=== PATIENT | female | born 1985 | race Caucasian/White ===

== ENCOUNTER 2017-06-24 17:48 | Emergency (ER) | payer BC ==
[2017-06-24 18:02] VITALS: BP 131/80
[2017-06-24] MEDS ORDERED: Sodium Chloride 0.9% 10 ML Syringe FLUSH PRN ×2 (18:43→20:04)
[2017-06-24] MEDS ORDERED: Diatrizoate Meglumine/Diatrizoate Sodium 37% 120 ML Bottle PO ONE (20:04)
[2017-06-24] MEDS ORDERED: Iopamidol 612 MG/ML 150 ML Bottle IVPUSH ONE (20:04)
[2017-06-24] MEDS ORDERED: Ondansetron 4 MG/2 ML SDV IVPUSH ONE (20:27)
[2017-06-24] MEDS ORDERED: HYDROmorphone 1 MG/ML Syringe IVPUSH ONE (20:27)
--- NOTE | 2017-06-24 20:51 | EDM.PDOC ---
ED HPI GENERAL MEDICAL PROBLEM - General Chief Complaint: Abdominal Pain Stated Complaint: LOWER ABDOMINAL PAIN Time Seen by Provider: 06/24/17 18:30 Source of Information: Reports: Patient History Limitations: Reports: No Limitations - History of Present Illness INITIAL COMMENTS - FREE TEXT/NARRATIVE: 31 year old female presents for evaluation and treatment of lower abdominal pain. Patient reports the pain initially began this morning. States the pain resolved on its own but returned this afternoon and worsened. Currently pain is located in her lower abdomen and is described as a sharp sensation. Reports the pain is worse with movement and coughing. States the pain is a 10 out of 10 with walking and a 3 or 4 out of 10 at rest. Reports associated symptoms of dizziness, nausea and hot flashes. Denies any fevers, vomiting, dysuria, hematuria, melena or constipation. Patient reports last bowel movement around 3pm today. It was soft and easy to pass. Patient has an IUD in place. No longer has a menstrual cycle. No previous surgeries to her abdomen. Onset: Today Bilateral Lower Abdomen Pain Score (Numeric/FACES): 7 - Related Data Allergies Allergy/AdvReac Type Severity Reaction Status Date / Time No Known Allergies Allergy Verified 06/24/17 18:02 Home Meds: Home Meds Levonorgestrel [Mirena] 1 insert IUTERINE ONETIME 06/24/17 [History] Past Medical History - Past Health History Medical/Surgical History: Denies Medical/Surgical History Social & Family History - Tobacco Use Smoking Status *Q: Current Some Day Smoker Years of Tobacco use: 5 Packs/Tins Daily: 0.1 Used Tobacco, but Quit: No Second Hand Smoke Exposure: No - Caffeine Use Caffeine Use: Reports: Soda Other Caffeine Use: 1/week - Recreational Drug Use Recreational Drug Use: No ED ROS GENERAL - Review of Systems Review Of Systems: See Below Constitutional: Reports: Malaise. Denies: Fever GI/Abdominal: Reports: Abdominal Pain (lower abdomen), Decreased Appetite (last intake around 1500), Flatus, Nausea. Denies: Hematochezia, Melena, Vomiting : Reports: No Symptoms, Other (LMP unknown). Denies: Dysuria, Hematuria Neurological: Reports: Dizziness ED EXAM, GI/ABD - Physical Exam Exam: See Below Exam Limited By: No Limitations General Appearance: Alert, WD/WN, No Apparent Distress, Obese Respiratory/Chest: No Respiratory Distress, Lungs Clear, Normal Breath Sounds Cardiovascular: Normal Peripheral Pulses, Regular Rate, Rhythm, No Murmur GI/Abdominal Exam: Normal Bowel Sounds, Soft, Guarding, Tender (greatest to the LLQ and suprapbic but also to the RLQ), Other (+ psosas sign; + obturator sign; reports pain at mcburnies point). No: Distended, Rigid, Rebound Neurological: Alert, Oriented, Normal Cognition Psychiatric: Normal Affect, Normal Mood Skin Exam: Warm, Dry, Normal Color Course - Vital Signs Last Recorded V/S: Last Vital Signs Temp 36.6 C 06/24/17 17:59 Pulse 79 06/24/17 17:59 Resp 20 06/24/17 17:59 BP 131/80 06/24/17 17:59 Pulse Ox 98 06/24/17 17:59 - Orders/Labs/Meds Labs: Laboratory Tests 06/24/17 06/24/17 06/24/17 Range/Units 19:10 19:10 19:10 WBC 17.87 H (3.98-10.04) K/mm3 RBC 5.37 H (3.98-5.22) M/mm3 Hgb 14.9 (11.2-15.7) gm/L Hct 42.1 (34.1-44.9) % MCV 78.4 L (79.4-94.8) fl MCH 27.7 (25.6-32.2) pg MCHC 35.4 (32.2-35.5) g/dl RDW Std Deviation 37.5 (36.4-46.3) fL Plt Count 292 (182-369) K/mm3 MPV 10.2 (9.4-12.3) fl Neutrophils % (Manual) 81 H (40-60) % Band Neutrophils % 0 (0-10) % Lymphocytes % (Manual) 14 L (20-40) % Atypical Lymphs % 0 % Monocytes % (Manual) 4 (2-10) % Eosinophils % (Manual) 1 (0.7-5.8) % Basophils % (Manual) 0 L (0.1-1.2) Platelet Estimate Adequate Plt Morphology Comment Normal RBC Morph Comment Normal Sodium 138 (136-145) mEq/L Potassium 3.8 (3.5-5.1) mEq/L Chloride 103 (98-107) mEq/L Carbon Dioxide 25 (21-32) mEq/L Anion Gap 13.8 (5-15) BUN 12 (7-18) mg/dL Creatinine 0.9 (0.55-1.02) mg/dL Est Cr Clr Drug Dosing 88.07 mL/min Estimated GFR (MDRD) > 60 (>60) mL/min BUN/Creatinine Ratio 13.3 L (14-18) Glucose 86 (74-106) mg/dL Calcium 11.2 H (8.5-10.1) mg/dL Total Bilirubin 0.5 (0.2-1.0) mg/dL AST 15 (15-37) U/L ALT 29 (14-59) U/L Alkaline Phosphatase 164 H (46-116) U/L C-Reactive Protein < 0.2 (<1.0) mg/dL Total Protein 7.5 (6.4-8.2) g/dl Albumin 4.5 (3.4-5.0) g/dl Globulin 3.0 gm/dL Albumin/Globulin Ratio 1.5 (1-2) HCG, Qual Negative (NEGATIVE) Urine Color (Yellow) Urine Appearance (Clear) Urine pH (5.0-8.0) Ur Specific [place] (1.005-1.030) Urine Protein (Negative) Urine Glucose (UA) (Negative) Urine Ketones (Negative) Urine Occult Blood (Negative) Urine Nitrite (Negative) Urine Bilirubin (Negative) Urine Urobilinogen (0.2-1.0) Ur Leukocyte Esterase (Negative) Urine RBC (0-5) /hpf Urine WBC (0-5) /hpf Ur Epithelial Cells (0-5) /hpf Urine Bacteria (FEW) /hpf Urine Mucus (FEW) /hpf 06/24/17 Range/Units 20:15 WBC (3.98-10.04) K/mm3 RBC (3.98-5.22) M/mm3 Hgb (11.2-15.7) gm/L Hct (34.1-44.9) % MCV (79.4-94.8) fl MCH (25.6-32.2) pg MCHC (32.2-35.5) g/dl RDW Std Deviation (36.4-46.3) fL Plt Count (182-369) K/mm3 MPV (9.4-12.3) fl Neutrophils % (Manual) (40-60) % Band Neutrophils % (0-10) % Lymphocytes % (Manual) (20-40) % Atypical Lymphs % % Monocytes % (Manual) (2-10) % Eosinophils % (Manual) (0.7-5.8) % Basophils % (Manual) (0.1-1.2) Platelet Estimate Plt Morphology Comment RBC Morph Comment Sodium (136-145) mEq/L Potassium (3.5-5.1) mEq/L Chloride (98-107) mEq/L Carbon Dioxide (21-32) mEq/L Anion Gap (5-15) BUN (7-18) mg/dL Creatinine (0.55-1.02) mg/dL Est Cr Clr Drug Dosing mL/min Estimated GFR (MDRD) (>60) mL/min BUN/Creatinine Ratio (14-18) Glucose (74-106) mg/dL Calcium (8.5-10.1) mg/dL Total Bilirubin (0.2-1.0) mg/dL AST (15-37) U/L ALT (14-59) U/L Alkaline Phosphatase (46-116) U/L C-Reactive Protein (<1.0) mg/dL Total Protein (6.4-8.2) g/dl Albumin (3.4-5.0) g/dl Globulin gm/dL Albumin/Globulin Ratio (1-2) HCG, Qual (NEGATIVE) Urine Color Light yellow (Yellow) Urine Appearance Clear (Clear) Urine pH 6.0 (5.0-8.0) Ur Specific [place] 1.015 (1.005-1.030) Urine Protein Negative (Negative) Urine Glucose (UA) Negative (Negative) Urine Ketones Negative (Negative) Urine Occult Blood Negative (Negative) Urine Nitrite Negative (Negative) Urine Bilirubin Negative (Negative) Urine Urobilinogen 0.2 (0.2-1.0) Ur Leukocyte Esterase Trace H (Negative) Urine RBC 0-5 (0-5) /hpf Urine WBC 10-20 H (0-5) /hpf Ur Epithelial Cells 20-30 H (0-5) /hpf Urine Bacteria Few (FEW) /hpf Urine Mucus Not seen (FEW) /hpf Meds: Medications Discontinued Medications Generic Name Dose Route Start Last Admin Trade Name Freq PRN Reason Stop Dose Admin Diatrizoate Meglum/Diatrizoate Sod 120 ml 06/24/17 20:04 06/24/17 20:36 Gastrografin 37% PO 06/24/17 20:05 90 ml ONETIME ONE Administration Hydromorphone HCl 1 mg 06/24/17 20:27 06/24/17 20:45 Dilaudid IVPUSH 06/24/17 20:28 1 mg ONETIME ONE Administration Iopamidol 150 ml 06/24/17 20:04 06/24/17 20:36 Isovue-300 (61%) IVPUSH 06/24/17 20:05 125 ml ONETIME ONE Administration Ondansetron HCl 4 mg 06/24/17 20:27 06/24/17 20:44 Zofran IVPUSH 06/24/17 20:28 4 mg ONETIME ONE Administration Sodium Chloride 10 ml 06/24/17 18:43 06/24/17 19:15 Saline Flush FLUSH 10 ml ASDIRECTED PRN Administration Keep Vein Open Sodium Chloride 10 ml 06/24/17 20:04 06/24/17 20:36 Saline Flush FLUSH 10 ml ONETIME PRN Administration IV FLUSH - Radiology Interpretation Free Text/Narrative:: CT of the abdomen and pelvis with IV and oral contrast impression per [facility]: 1. A moderate amount of free fluid is seen in the abdomen and pelvis. 2. Oral contrast outlines a normal-appearing appendix. 3. 4.6 cm left ovarian cyst. Given pelvic pain and enlarged left ovary, ovarian torsion would be a consideration. A ruptured ovarian cyst can also come for some of the free fluid in the abdomen. Further evaluation with pelvic ultrasound is recommended. Transvaginal ultrasound impression per [facility]: 4.4 cm complex cyst arising from the left ovary with internal septations, likely representing a hemorrhagic cyst. Right ovary not clearly visualized. Normal-appearing uterus. IUD device present. Free fluid in the pelvis. CT Results Date: 06/24/17 - Re-Assessments/Exams Free Text/Narrative Re-Assessment/Exam: 06/24/17 21:18 Labs returned. Of note, her CRP is within normal limits at <0.2, wbc is elevated at 17. HCG is negative. I reviewed the CT and lab results with the patient. Plan is to obtain an ultrasound as recommended by [facility] to further evaluate for a possible ovarian cyst and rule out ovarian torsion. Pain has improved with IV pain meds and nausea meds. 06/24/17 23:[address] Kaplan. Recommended ibuprofen and follow-up with Ob. I reviewed the ultrasound results with the patient. I had nursing staff recheck her vitals, she is hemodynamically stable. Will discharge home at this time. Discharge instructions as documented. Departure - Departure Time of Disposition: 23:27 Disposition: Home, Self-Care 01 Condition: Fair Clinical Impression: Ovarian cyst - Discharge Information Instructions: Ovarian Cyst, [id number], Ovarian Cyst Referrals: Eric Orr MD [Primary Care Provider] - Forms: ED Department Discharge Additional Instructions: You were given medication in the ER that can affect your ability to drive and operate machinery. Do not drive or operate machinery within 12 hours of taking prescription narcotic pain medication. Call tomorrow to schedule follow-up with Dr. Orr. Call [phone]. Follow- up within 1 week. Ibuprofen 600mg PO every 6 hours prn pain. For pain not relieved by ibuprofen, may take percocet 1-2 tabs PO every 4-6 hours as needed. Perciocet can be habit forming, I recommend you take as few of these as needed to control your pain. Do not drive or operate machinery within 12 hours of taking percocet. Please return to the ER should your symptoms change or worsen.
--- NOTE | 2017-06-25 15:10 | US ---
Pelvic ultrasound: Multiple real-time images were obtained transvaginally and transabdominally. Comparison: No previous pelvic ultrasound, previous CT exam performed earlier on same day (8:39 PM). Fair amount of fluid is seen within the cul-de-sac most likely from cyst leakage. Complex cyst measuring 4.3 cm is identified within the left ovary. Right ovary is not well seen, right adnexa appears within normal limits. Uterus is anteverted. No myometrial abnormality is identified. Hyperechoic area is seen within the endometrial cavity compatible with IUD. Endometrial stripe measurement is 5.6 mm. Impression: 1. Moderate fluid within the cul-de-sac. 4.3 cm complex cyst within the left ovary. Free fluid most likely from leaking left ovarian cyst. 2. IUD present within the endometrial cavity. Diagnostic code #3 Agree with preliminary report issued by [facility] ([facility] preliminary report dictated on 06/25/17, 12:10 AM Central Time)
--- NOTE | 2017-06-25 16:18 | CT ---
CT abdomen and pelvis Technique: Multiple axial sections were obtained in the top of the liver inferiorly through the pubic symphysis. Delayed images were also obtained through the bladder. Comparison: No prior study. Findings: Visualized lung bases show nothing acute. Liver shows no focal parenchymal abnormality. Spleen appears within normal limits. Small amount of fluid is seen within both upper quadrants. Small amount of fluid is seen within the right paracolic gutter. More confluent fluid is seen within the cul-de-sac. Adrenal glands show no nodule. Pancreas is within normal limits. Kidneys show symmetric contrast enhancement without hydronephrosis or mass. Appendix appears within normal limits. Aorta shows no aneurysmal dilatation. Gallbladder shows no calcified gallstones. No retroperitoneal adenopathy is seen. No mesenteric abnormalities are noted. Cysts noted within the left ovary measuring approximately 4.3 cm. IUD is present within the uterus. Delayed images show contrast within the bladder. Bone window settings were reviewed which appears within normal limits for the patient's age. Impression: 1. Free fluid within the abdomen and pelvis most likely due to leakage from left ovarian cyst measuring 4.3 cm. 2. Other incidental findings. Diagnostic code #3 Agree with preliminary report issued by [facility] ([facility] preliminary report dictated on 06/24/17, 10:31 PM Central Time)
== END 2017-06-24 23:43 | disposition home or self-care (01) ==
LOC: JD.ED 17:48
DX: N83.202 Unspecified ovarian cyst, left side (principal); F17.210 Nicotine dependence, cigarettes, uncomplicated
CPT/HCPCS: 36415; 74177; 76830; 80053; 81001; 84703; 85025; 86140; 96374; 96375; 99284; J1170; J2405; J7050; Q9963; Q9967; 99283

== ENCOUNTER 2018-01-16 17:28 | Emergency (ER) | payer BC ==
[2018-01-16 17:40] VITALS: BP 157/108
--- NOTE | 2018-01-16 18:05 | EDM.PDOC ---
ED HPI GENERAL MEDICAL PROBLEM - General Chief Complaint: Lower Extremity Injury/Pain Stated Complaint: POSS FOOT INJURY Time Seen by Provider: 01/16/18 18:05 Source of Information: Reports: Patient - History of Present Illness INITIAL COMMENTS - FREE TEXT/NARRATIVE: Patient is brought here today by her best friend and her for evaluation of an injury to her right foot/ankle that occurred just prior to arrival. She states that she was at her friend's house, was walking outside and stepped off a 1 foot wedged and felt a twist and pop and had immediate pain on her right foot and ankle. Patient was able to get up with help, she did try using her friend's crutches but they were too tall for her to use. She is now having significant pain and swelling to the lateral aspect of her right foot. Patient has no chronic medical conditions, she is not on medications daily. She denies chance of , she has Mirena. Right Feet Pain Score (Numeric/FACES): 5 - Related Data Allergies Allergy/AdvReac Type Severity Reaction Status Date / Time No Known Allergies Allergy Verified 06/24/17 18:02 Home Meds: Home Meds Levonorgestrel [Mirena] 1 insert IUTERINE ONETIME 06/24/17 [History] Zolpidem Tartrate [Ambien] 5 mg PO BEDTIME 01/16/18 [History] Past Medical History - Past Health History Medical/Surgical History: Denies Medical/Surgical History Social & Family History - Tobacco Use Smoking Status *Q: Never Smoker Years of Tobacco use: 5 Packs/Tins Daily: 0.1 Used Tobacco, but Quit: No Second Hand Smoke Exposure: No - Caffeine Use Caffeine Use: Reports: Soda Other Caffeine Use: 1/week - Recreational Drug Use Recreational Drug Use: No Review of Systems - Review of Systems Review Of Systems: See Below Constitutional: Reports: No Symptoms Respiratory: Reports: No Symptoms Cardiovascular: Reports: No Symptoms Musculoskeletal: Reports: Other (Right foot pain) Skin: Reports: No Symptoms Neurological: Reports: No Symptoms ED EXAM, GENERAL - Physical Exam Exam: See Below Exam Limited By: No Limitations General Appearance: Alert, WD/WN, No Apparent Distress Cardiovascular: Normal Peripheral Pulses Extremities: Other (Localized swelling and tenderness to the lateral aspect of right foot over the fifth metatarsal. Patient is able to move all of her toes. She is able to move her ankle without difficulty.) Neurological: Alert, Oriented, No Motor/Sensory Deficits Psychiatric: Normal Affect, Normal Mood Skin Exam: Warm, Dry, Intact. No: Ecchymosis Lymphatic: No Adenopathy Course - Vital Signs Last Recorded V/S: Last Vital Signs Temp 99.2 F 01/16/18 17:39 Pulse 95 01/16/18 17:39 Resp 20 01/16/18 17:39 BP 157/108 H 01/16/18 17:39 Pulse Ox 99 01/16/18 17:39 - Orders/Labs/Meds Orders: Active Orders 24 hr Category Date Time Status Vaccines to be Administered [RC] PER UNIT ROUTINE Care 01/16/18 18:14 Active Foot Comp Min 3V Rt [CR] Stat Exams 01/16/18 18:14 Taken Meds: Medications Discontinued Medications Generic Name Dose Route Start Last Admin Trade Name Freq PRN Reason Stop Dose Admin Diphtheria/Tetanus/Acell Pertussis 0.5 ml 01/16/18 18:13 01/16/18 18:40 Adacel IM 01/16/18 18:14 0.5 ml .ONCE ONE Administration Ibuprofen 800 mg 01/16/18 18:14 01/16/18 18:42 Motrin PO 01/16/18 18:15 800 mg ONETIME ONE Administration - Re-Assessments/Exams Free Text/Narrative Re-Assessment/Exam: Will get x-ray of right foot, patient has Mirena/is not . 800 mg ibuprrofen for pain. She has ice over the injured area currently. She is due for tetanus booster so this will be given as well. 01/16/18 18:16 X-ray demonstrates avulsion fracture to the proximal fifth metatarsal. Patient declines splinting as it would be cumbersome and she would have difficulty with dressing. Will put her in a hard soled shoe and have her stay nonweightbearing. She will follow-up with orthopedics next week. She declines pain medication as she does get nauseated from narcotics. She reports having hydrocodone at home from previous surgery and she states that she will take this if she needs to. She will take 600 mg ibuprofen 3 times daily and ice this 15 minutes every other hour. 01/16/18 19:10 01/16/18 19:13 Departure - Departure Time of Disposition: 19:12 Disposition: Home, Self-Care 01 Condition: Good Clinical Impression: Metatarsal stress fracture of right foot Qualifiers: Encounter type: initial encounter Qualified Code(s): M84.374A - Stress fracture , right foot, initial encounter for fracture - Discharge Information Referrals: Damaris Trent NP [Primary Care Provider] - Forms: ED Department Discharge Additional Instructions: Ibuprofen 600 mg daily. You can take the pain medication that you have a home for breakthrough pain if needed. Ice 15 minutes every other hour. Do not bear weight to this foot for now. Follow-up with orthopedics next week or certainly return to the emergency room if needed. You can schedule with Dr. Grossman at [phone]. - My Orders Last 24 Hours: My Active Orders 01/16/18 18:14 Vaccines to be Administered [RC] PER UNIT ROUTINE Foot Comp Min 3V Rt [CR] Stat - Assessment/Plan Last 24 Hours: My Active Orders 01/16/18 18:14 Vaccines to be Administered [RC] PER UNIT ROUTINE Foot Comp Min 3V Rt [CR] Stat
[2018-01-16] MEDS ORDERED: Diphtheria,Pertussis(Acell),Tetanus Vaccine 0.5 ML SDV IM ONE (18:13)
[2018-01-16] MEDS ORDERED: Ibuprofen 800 MG Tab PO ONE (18:14)
--- NOTE | 2018-01-18 16:53 | CR ---
Right foot: Four views of the right foot were obtained. Comparison: No prior foot exam. Minimal plantar spur is seen. Joint spaces are preserved. Fracture is identified within the base of the fifth metatarsal. No additional bony abnormality is seen. Impression: 1. Fracture within the base of the fifth metatarsal. 2. Minimal plantar spur. Diagnostic code #3
== END 2018-01-16 19:32 | disposition home or self-care (01) ==
LOC: JD.ED 17:28
DX: S92.351A Displaced fracture of fifth metatarsal bone, right foot, initial encounter for closed fracture (principal); Z23 Encounter for immunization; X50.9XXA Other and unspecified overexertion or strenuous movements or postures, initial encounter; Y92.009 Unspecified place in unspecified non-institutional (private) residence as the place of occurrence of the external cause
CPT/HCPCS: 73630; 90471; 90715; 99283; A9270

== ENCOUNTER 2018-03-12 09:41 | Emergency (ER) | payer BC ==
[2018-03-12 09:50] VITALS: BP 135/72
[2018-03-12] MEDS ORDERED: Sodium Chloride 0.9% 10 ML Syringe FLUSH PRN (10:06)
[2018-03-12] MEDS ORDERED: Ketorolac 30 MG/ML SDV IVPUSH ONE (10:06)
[2018-03-12] MEDS ORDERED: Sodium Chloride 0.9% 1,000 ML IV ONE (10:06)
[2018-03-12] MEDS ORDERED: Pantoprazole 40 MG Vial IVPUSH ONE (10:30)
[2018-03-12] MEDS ORDERED: Dicyclomine 10 MG Cap PO ONE (10:30)
--- NOTE | 2018-03-12 12:48 | US ---
Limited abdominal ultrasound: Multiple real-time images of the upper right abdomen were obtained. Comparison: Prior abdominal and pelvic CT exam of 06/24/17. Technologist's note: CHD/CBD difficult to visualize due to large body habitus Findings: Liver shows no focal abnormality. Gallbladder contains no gallstones. No gallbladder wall thickening is seen. No indirect evidence of biliary duct dilatation. Right kidney shows no hydronephrosis or mass and has a length of 11.9 cm. Tail of the pancreas is obscured. Other portions of pancreas felt to be within normal limits. Inferior vena cava is patent. Portal vein shows normal hepatopedal flow. Impression: 1. No abnormality is identified on right upper quadrant abdominal ultrasound exam. Diagnostic code #1
--- NOTE | 2018-03-12 13:12 | EDM.PDOC ---
ED HPI GENERAL MEDICAL PROBLEM - General Chief Complaint: Abdominal Pain Stated Complaint: ABDOMINAL PAIN Time Seen by Provider: 03/12/18 10:05 Source of Information: Reports: Patient History Limitations: Reports: No Limitations - History of Present Illness INITIAL COMMENTS - FREE TEXT/NARRATIVE: 32 y/o F with upper abd pain. Started early this morning, around 3AM. Woke her from sleep. Pain is in upper and left abdomen. Dull/cramping. Worse with lying flat, better with sitting flat. No vomiting. No nausea. No appetite, hasn't had much to eat today. She denies fever. No diarrhea. No hx similar symptoms. No clear provoking factor. No cough/CP/SOB. No dysuria/hematuria. Went to walk in clinic and referred here for further care. Left Upper Abdominal Pain Score (Numeric/FACES): 8 - Related Data Allergies Allergy/AdvReac Type Severity Reaction Status Date / Time No Known Allergies Allergy Verified 03/12/18 09:50 Home Meds: Home Meds Levonorgestrel [Mirena] 1 insert IUTERINE ONETIME 06/24/17 [History] Zolpidem Tartrate [Ambien] 5 mg PO BEDTIME 01/16/18 [History] Famotidine 40 mg PO DAILY #30 tablet 03/12/18 [Rx] Past Medical History - Past Health History Medical/Surgical History: Denies Medical/Surgical History Other OB/BYN History: Cyst to ovary Musculoskeletal History: Reports: Fracture Social & Family History - Family History Family Medical History: Noncontributory - Caffeine Use Caffeine Use: Reports: Soda Other Caffeine Use: 1/week - Recreational Drug Use Recreational Drug Use: No ED ROS GENERAL - Review of Systems Review Of Systems: See Below Constitutional: Denies: Fever HEENT: Reports: No Symptoms Respiratory: Denies: Shortness of Breath Cardiovascular: Denies: Chest Pain Endocrine: Reports: No Symptoms GI/Abdominal: Reports: Abdominal Pain : Denies: Dysuria, Flank Pain Musculoskeletal: Reports: No Symptoms Skin: Reports: No Symptoms Neurological: Reports: No Symptoms Psychiatric: Reports: No Symptoms Hematologic/Lymphatic: Reports: No Symptoms ED EXAM, GI/ABD - Physical Exam Exam: See Below Exam Limited By: No Limitations General Appearance: Alert, WD/WN, No Apparent Distress Eyes: Bilateral: Normal Appearance Ears: Normal External Exam Nose: Normal Inspection Throat/Mouth: Normal Inspection, Normal Oropharynx, Normal Voice, No Airway Compromise Head: Atraumatic, Normocephalic Neck: Normal Inspection, Supple Respiratory/Chest: No Respiratory Distress, Lungs Clear, Normal Breath Sounds, Chest Non-Tender Cardiovascular: Normal Peripheral Pulses, Regular Rate, Rhythm, No Edema, No Murmur GI/Abdominal Exam: Soft, Other (mild upper abd epigastric and LUQ TTP, no rebound/guarding) Back Exam: Normal Inspection. No: CVA Tenderness (L), CVA Tenderness (R) Extremities: Normal Inspection Neurological: Alert, Oriented, Normal Cognition, No Motor/Sensory Deficits Psychiatric: Normal Affect, Normal Mood Skin Exam: Warm, Dry, Intact, Normal Color, No Rash Course - Vital Signs Last Recorded V/S: Last Vital Signs Temp 37.2 C 03/12/18 09:46 Pulse 91 03/12/18 09:46 Resp 20 03/12/18 09:46 BP 135/72 03/12/18 09:46 Pulse Ox 100 03/12/18 09:46 - Orders/Labs/Meds Orders: Active Orders 24 hr Category Date Time Status Peripheral IV Care [RC] . DIRECTED Care 03/12/18 10:06 Active Peripheral IV Care [RC] . DIRECTED Care 03/12/18 10:06 Active HCG QUALITATIVE,URINE [URCHEM] Stat Lab 03/12/18 11:02 Ordered UA W/MICROSCOPIC [URIN] Stat Lab 03/12/18 11:02 Ordered Peripheral IV Insertion Adult [OM.PC] Routine Oth 03/12/18 10:06 Ordered Labs: Laboratory Tests 03/12/18 03/12/18 03/12/18 Range/Units 10:36 10:39 10:39 WBC 11.19 H (3.98-10.04) K/mm3 RBC 4.95 (3.98-5.22) M/mm3 Hgb 13.4 (11.2-15.7) gm/L Hct 38.7 (34.1-44.9) % MCV 78.2 L (79.4-94.8) fl MCH 27.1 (25.6-32.2) pg MCHC 34.6 (32.2-35.5) g/dl RDW Std Deviation 35.3 L (36.4-46.3) fL Plt Count 233 (182-369) K/mm3 MPV 10.3 (9.4-12.3) fl Neut % (Auto) 88.6 H (34.0-71.1) % Lymph % (Auto) 5.7 L (19.3-51.7) % [place] % (Auto) 5.0 (4.7-12.5) % Eos % (Auto) 0.4 L (0.7-5.8) Baso % (Auto) 0.1 (0.1-1.2) % Neut # (Auto) 9.92 H (1.56-6.13) K/mm3 Lymph # (Auto) 0.64 L (1.18-3.74) K/mm3 [place] # (Auto) 0.56 H (0.24-0.36) K/mm3 Eos # (Auto) 0.04 (0.04-0.36) K/mm3 Baso # (Auto) 0.01 (0.01-0.08) K/mm3 Manual Slide Review Abnormal smear Sodium 140 (136-145) mEq/L Potassium 3.8 (3.5-5.1) mEq/L Chloride 107 (98-107) mEq/L Carbon Dioxide 22 (21-32) mEq/L Anion Gap 14.8 (5-15) BUN 10 (7-18) mg/dL Creatinine 0.8 (0.55-1.02) mg/dL Est Cr Clr Drug Dosing 90.84 mL/min Estimated GFR (MDRD) > 60 (>60) mL/min BUN/Creatinine Ratio 12.5 L (14-18) Glucose 92 (74-106) mg/dL Calcium 9.9 (8.5-10.1) mg/dL Total Bilirubin 0.8 (0.2-1.0) mg/dL AST 14 L (15-37) U/L ALT 24 (14-59) U/L Alkaline Phosphatase 119 H (46-116) U/L Total Protein 6.5 (6.4-8.2) g/dl Albumin 3.7 (3.4-5.0) g/dl Globulin 2.8 gm/dL Albumin/Globulin Ratio 1.3 (1-2) Lipase 66 L (73-393) U/L Urine Color (Yellow) Urine Appearance (Clear) Urine pH (5.0-8.0) Ur Specific [place] (1.005-1.030) Urine Protein (Negative) Urine Glucose (UA) (Negative) Urine Ketones (Negative) Urine Occult Blood (Negative) Urine Nitrite (Negative) Urine Bilirubin (Negative) Urine Urobilinogen (0.2-1.0) Ur Leukocyte Esterase (Negative) Urine RBC (0-5) /hpf Urine WBC (0-5) /hpf Ur Epithelial Cells (0-5) /hpf Urine Bacteria (FEW) /hpf Urine Mucus (FEW) /hpf Urine HCG, Qual (NEGATIVE) 03/12/18 03/12/18 Range/Units 11:02 11:02 WBC (3.98-10.04) K/mm3 RBC (3.98-5.22) M/mm3 Hgb (11.2-15.7) gm/L Hct (34.1-44.9) % MCV (79.4-94.8) fl MCH (25.6-32.2) pg MCHC (32.2-35.5) g/dl RDW Std Deviation (36.4-46.3) fL Plt Count (182-369) K/mm3 MPV (9.4-12.3) fl Neut % (Auto) (34.0-71.1) % Lymph % (Auto) (19.3-51.7) % [place] % (Auto) (4.7-12.5) % Eos % (Auto) (0.7-5.8) Baso % (Auto) (0.1-1.2) % Neut # (Auto) (1.56-6.13) K/mm3 Lymph # (Auto) (1.18-3.74) K/mm3 [place] # (Auto) (0.24-0.36) K/mm3 Eos # (Auto) (0.04-0.36) K/mm3 Baso # (Auto) (0.01-0.08) K/mm3 Manual Slide Review Sodium (136-145) mEq/L Potassium (3.5-5.1) mEq/L Chloride (98-107) mEq/L Carbon Dioxide (21-32) mEq/L Anion Gap (5-15) BUN (7-18) mg/dL Creatinine (0.55-1.02) mg/dL Est Cr Clr Drug Dosing mL/min Estimated GFR (MDRD) (>60) mL/min BUN/Creatinine Ratio (14-18) Glucose (74-106) mg/dL Calcium (8.5-10.1) mg/dL Total Bilirubin (0.2-1.0) mg/dL AST (15-37) U/L ALT (14-59) U/L Alkaline Phosphatase (46-116) U/L Total Protein (6.4-8.2) g/dl Albumin (3.4-5.0) g/dl Globulin gm/dL Albumin/Globulin Ratio (1-2) Lipase (73-393) U/L Urine Color Yellow (Yellow) Urine Appearance Clear (Clear) Urine pH 7.0 (5.0-8.0) Ur Specific [place] 1.025 (1.005-1.030) Urine Protein Negative (Negative) Urine Glucose (UA) Negative (Negative) Urine Ketones Negative (Negative) Urine Occult Blood Negative (Negative) Urine Nitrite Negative (Negative) Urine Bilirubin Negative (Negative) Urine Urobilinogen 0.2 (0.2-1.0) Ur Leukocyte Esterase Negative (Negative) Urine RBC Not seen (0-5) /hpf Urine WBC Not seen (0-5) /hpf Ur Epithelial Cells 5-10 H (0-5) /hpf Urine Bacteria Not seen (FEW) /hpf Urine Mucus Few (FEW) /hpf Urine HCG, Qual Negative (NEGATIVE) Meds: Medications Discontinued Medications Generic Name Dose Route Start Last Admin Trade Name Freq PRN Reason Stop Dose Admin Dicyclomine HCl 40 mg 03/12/18 10:30 03/12/18 10:53 Bentyl PO 03/12/18 10:31 40 mg ONETIME ONE Administration Sodium Chloride 1,000 mls @ 1,000 mls/hr 03/12/18 10:06 03/12/18 10:16 Normal Saline IV 03/12/18 11:05 1,000 mls/hr ONETIME ONE Administration Ketorolac Tromethamine 30 mg 03/12/18 10:06 03/12/18 10:16 Toradol IVPUSH 03/12/18 10:07 30 mg ONETIME ONE Administration Pantoprazole Sodium 40 mg 03/12/18 10:30 03/12/18 10:52 Protonix Iv IVPUSH 03/12/18 10:31 40 mg ONETIME ONE Administration Sodium Chloride 10 ml 03/12/18 10:06 03/12/18 10:17 Saline Flush FLUSH 10 ml ASDIRECTED PRN Administration Keep Vein Open - Re-Assessments/Exams Free Text/Narrative Re-Assessment/Exam: 03/12/18 14:16 Labs show WBC 11, normal lipase and LFT's. RUQ u/s shows normal gallbladder, no acute abnormality. After bentyl, zofran, antacid, and toradol, she feels much better. Pain nearly resolved and she wants to eat. On reexam, no abdominal TTP. Therefore, will dc with H2 abena and plan for PCP f/u for further eval, including possible referral for upper endoscopy if she continues to have upper abdominal pain. Discussed strict ED return precautions for return of significant pain or other concerning symptoms. Departure - Departure Time of Disposition: 13:10 Disposition: Home, Self-Care 01 Clinical Impression: Abdominal pain Qualifiers: Abdominal location: epigastric Qualified Code(s): R10.13 - Epigastric pain - Discharge Information Prescriptions: Famotidine 40 mg PO DAILY #30 tablet Instructions: Abdominal Pain, Adult, [id number] Referrals: Damaris Trent NP [Primary Care Provider] - Forms: ED Department Discharge Additional Instructions: 1. Take famotidine as prescribed to reduce stomach acid 2. [place] diet. Advance diet as tolerated. 3. Follow up with your primary doctor for further care, including possible referral for upper endoscopy if your symptoms continue 4. Return to the ED for a recheck if you have worsening pain or other concerning symptoms, such as vomiting without keeping liquids down, fever, or other concerns - My Orders Last 24 Hours: My Active Orders 03/12/18 10:06 Peripheral IV Care [RC] . DIRECTED Peripheral IV Care [RC] . DIRECTED Peripheral IV Insertion Adult [OM.PC] Routine 03/12/18 11:02 HCG QUALITATIVE,URINE [URCHEM] Stat UA W/MICROSCOPIC [URIN] Stat - Assessment/Plan Last 24 Hours: My Active Orders 03/12/18 10:06 Peripheral IV Care [RC] . DIRECTED Peripheral IV Care [RC] . DIRECTED Peripheral IV Insertion Adult [OM.PC] Routine 03/12/18 11:02 HCG QUALITATIVE,URINE [URCHEM] Stat UA W/MICROSCOPIC [URIN] Stat
== END 2018-03-12 13:30 | disposition home or self-care (01) ==
LOC: JD.ED 09:41
DX: R10.13 Epigastric pain (principal); R10.12 Left upper quadrant pain
CPT/HCPCS: 36415; 76705; 80053; 81001; 81025; 83690; 85025; 96361; 96374; 96375; 99284; A9270; C9113; J1885; J7040; J7050

== ENCOUNTER 2018-04-02 06:57 | Day surgery (SDC) | payer BC ==
[2018-04-02] MEDS ORDERED: Lidocaine 1%/Sod Bicarbonate in NS 8.4% 1 ML Syringe IDERM PRN (07:00)
[2018-04-02] MEDS ORDERED: Sodium Chloride 0.9% 10 ML Syringe FLUSH PRN (07:00)
[2018-04-02] MEDS ORDERED: Lactated Ringers 1,000 ML IV SCH (07:00)
[2018-04-02] MEDS ORDERED: Lidocaine 1% 4 ML ONE (07:03)
[2018-04-02] MEDS ORDERED: Propofol 200 MG/20 ML SDV ONE (07:03)
[2018-04-02] MEDS ORDERED: fentaNYL 100 MCG/2 ML SDV ONE (07:04)
--- NOTE | 2018-04-02 07:18 | PCM.PREANE ---
Preanesthetic Assessment - Procedure Proposed Procedure: EGD - Anesthesia/Transfusion/Family Hx Anesthesia History: Prior Anesthesia Without Reaction Family History of Anesthesia Reaction: No Transfusion History: No Prior Transfusion(s) - Review of Systems General: No Symptoms Pulmonary: No Symptoms Cardiovascular: No Symptoms Gastrointestinal: No Symptoms, Abdominal Pain (burning abd pain) Neurological: No Symptoms Other: Reports: None - Physical Assessment NPO Status Date: 04/01/18 NPO Status Time: 22:30 Pulse: 68 O2 Sat by Pulse Oximetry: 96 Respiratory Rate: 16 Blood Pressure: 126/77 Temperature: 97.7 F Height: 5 ft 5 in Weight: 116.8 kg ASA Class: 2 Mental Status: Alert & Oriented x3 Airway Class: Mallampati = 1 Dentition: Reports: Normal Dentition Thyro-Mental Finger Breadths: 3 Mouth Opening Finger Breadths: 3 ROM/Head Extension: Full Lungs: Clear to Auscultation, Normal Respiratory Effort Cardiovascular: Regular Rate, Regular Rhythm - Allergies Allergies/Adverse Reactions: Allergies Allergy/AdvReac Type Severity Reaction Status Date / Time No Known Allergies Allergy Verified 04/01/18 08:29 - Blood Blood Available: No - Acknowledgements Anesthesia Type Planned: MAC Pt an Appropriate Candidate for the Planned Anesthesia: Yes Alternatives and Risks of Anesthesia Discussed w Pt/Guardian: Yes Pt/Guardian Understands and Agrees with Anesthesia Plan: Yes PreAnesthesia Questionnaire - Past Health History Medical/Surgical History: Denies Medical/Surgical History HEENT History: Reports: Other (See Below) Other HEENT History: Seasonal allergies- multiple body piercings Cardiovascular History: Reports: None Respiratory History: Reports: None Gastrointestinal History: Reports: GERD, Other (See Below) Other Gastrointestinal History: Epigastric pain, abdominal pain Genitourinary History: Reports: None [employer] SAL[employer] History: Reports: Other (See Below) Other OB/BYN History: Ovarian cyst Musculoskeletal History: Reports: Fracture Other Musculoskeletal History: Stress fracture of right metatarsal bone Neurological History: Reports: None Psychiatric History: Reports: Other (See Below) Other Psychiatric History: Patient originally treated for anxiety due to not being able to sleep at night; however, antianxiety medications weren't helping and was started on the Ambien for the insomnia Endocrine/Metabolic History: Reports: None, Obesity/BMI 30+ Hematologic History: Reports: None Immunologic History: Reports: None Oncologic (Cancer) History: Reports: None Dermatologic History: Reports: None - Infectious Disease History Infectious Disease History: Reports: None - Past Surgical History Head Surgeries/Procedures: Reports: None HEENT Surgical History: Reports: Other (See Below) Other HEENT Surgeries/Procedures: Yolyn teeth extraction, oral surgery with 12 teeth extraction Cardiovascular Surgical History: Reports: None Respiratory Surgical History: Reports: None GI Surgical History: Reports: None Female Surgical History: Reports: None Endocrine Surgical History: Reports: None Neurological Surgical History: Reports: None Musculoskeletal Surgical History: Reports: None Oncologic Surgical History: Reports: None Dermatological Surgical History: Reports: None - SUBSTANCE USE Smoking Status *Q: Current Every Day Smoker (vape- started 1 year ago) Tobacco Use Within Last Twelve Months: Other (See Below) Other Tobacco Use Within Last Twelve Months: Vape Second Hand Smoke Exposure: Yes Days Per Week of Alcohol Use: 1 (occasional) Number of Drinks Per Day: 3 Total Drinks Per Week: 3 Recreational Drug Use History: No - HOME MEDS Home Medications: Home Meds Levonorgestrel [Mirena] 1 insert IUTERINE ASDIRECTED 06/24/17 [History] Zolpidem Tartrate [Ambien] 5 mg PO BEDTIME 01/16/18 [History] Loratadine/Pseudoephedrine [Claritin-D 12 Hour] 1 tab PO Q12HR PRN 04/01/18 [ History] Omeprazole Magnesium [Prilosec Otc] 40 mg PO DAILY 04/01/18 [History] - CURRENT (IN HOUSE) MEDS Current Meds: Current Medications Lactated Ringer's (Ringers, Lactated) 1,000 mls @ 125 mls/hr IV ASDIRECTED PATRICIA Lidocaine/Sodium Bicarbonate (Buffered Lidocaine 1% In Ns 8.4%) 0.25 ml IDERM ONETIME PRN PRN Reason: Prior to IV Start Sodium Chloride (Saline Flush) 10 ml FLUSH ASDIRECTED PRN PRN Reason: Keep Vein Open Discontinued Medications Fentanyl (Sublimaze) Confirm Administered Dose 100 mcg .ROUTE .STK-MED ONE Stop: 04/02/18 07:05 Lidocaine HCl (Xylocaine-Mpf 1%) Confirm Administered Dose 4 mls @ as directed .ROUTE .STK-MED ONE Stop: 04/02/18 07:04 Propofol (Diprivan 20 Ml) Confirm Administered Dose 200 mg .ROUTE .STK-MED ONE Stop: 04/02/18 07:04
--- NOTE | 2018-04-02 09:11 | PCM.OPNOTE ---
- General Post-Op/Procedure Note Date of Surgery/Procedure: 04/02/18 Operative Procedure(s): EGD with bx Pre Op Diagnosis: epigstric pain Post-Op Diagnosis: Same Anesthesia Technique: MAC Primary Surgeon: Sujit Young EBL in mLs: 0 Complications: None Condition: Good
--- NOTE | 2018-04-02 09:17 | PCM48HPAN ---
Post Anesthesia Note - EVALUATION WITHIN 48HRS OF ANESTHETIC Vital Signs in Normal Range: Yes Patient Participated in Evaluation: Yes Respiratory Function Stable: Yes Airway Patent: Yes Cardiovascular Function Stable: Yes Hydration Status Stable: Yes Pain Control Satisfactory: Yes Nausea and Vomiting Control Satisfactory: Yes Mental Status Recovered: Yes Pulse Rate: 65 SaO2: 95 Resp Rate: 16 Temperature: 97.9 F Blood Pressure: 120/63
[2018-04-02 10:01] VITALS: BP 106/68
--- NOTE | 2018-04-03 07:32 | OR ---
DATE OF OPERATION: 04/02/2018 SURGEON: Sujit Young MD PREOPERATIVE DIAGNOSIS: Epigastric pain. POSTOPERATIVE DIAGNOSIS: Epigastric pain. OPERATION PERFORMED: Esophagogastroduodenoscopy with biopsy of the antrum. FINDINGS: Some erythematous streaking in the antrum. Second portion of the duodenum, duodenal bulb, the body, fundus, and cardia were normal. Hiatus was intact. GE junction located at 40 cm with a sharp Z-line and no inflammation at the GE junction. Rest of the esophagus was normal. ANESTHESIA: IV sedation. DESCRIPTION OF PROCEDURE: The patient was taken to the endoscopy room, placed in a supine position, connected to monitoring equipment, given IV sedation, placed in the left lateral position. Bite-block was inserted and video Olympus gastroscope placed in the posterior oropharynx, under direct vision threaded past the cricopharyngeus down the esophagus into the stomach. Stomach was insufflated, and the scope was passed through the pylorus to the second portion of the duodenum, was slowly withdrawn noting a normal second portion of the duodenum, duodenal bulb, and pyloric channel. Antrum showed some erythematous streaking and this was biopsied. The body, cardia, and fundus of the stomach were reviewed along with the cardia and J-maneuver was performed. Hiatus was intact. Scope was withdrawn to the GE junction, which was located at 40 cm and was sharp and free of any acute pathology. Biopsies of the GE junction were done. The rest of the esophagus was viewed. The scope was withdrawn, it was normal. The patient tolerated the procedure, sent to recovery room in a stable condition. Specimen sent to pathology in a labeled container, and the patient will be followed up by her primary care. ESTIMATED BLOOD LOSS: MMODAL /[id number]
== END 2018-04-02 09:50 | disposition home or self-care (01) ==
LOC: JD.SDS 06:57
PROVIDERS: ATTEND Surgery
DX: R10.13 Epigastric pain (principal); K20.9 Esophagitis, unspecified; E66.9 Obesity, unspecified; Z68.41 Body mass index [BMI] 40.0-44.9, adult; F17.290 Nicotine dependence, other tobacco product, uncomplicated; K21.9 Gastro-esophageal reflux disease without esophagitis; F41.9 Anxiety disorder, unspecified; Z79.899 Other long term (current) drug therapy
CPT/HCPCS: 43239; 81025; J2001; J3010; J7120; 00731; J2704

== ENCOUNTER 2019-09-08 15:59 | Emergency (ER) | payer BC ==
[2019-09-08 16:31] VITALS: BP 162/74; PULSE 50
--- NOTE | 2019-09-08 17:16 | EDM.PDOC ---
ED HPI GENERAL MEDICAL PROBLEM - General Chief Complaint: Abdominal Pain Stated Complaint: RT SIDE PAIN Time Seen by Provider: 09/08/19 16:34 Source of Information: Reports: Patient, RN Notes Reviewed History Limitations: Reports: No Limitations - History of Present Illness INITIAL COMMENTS - FREE TEXT/NARRATIVE: Patient is a 33-year-old female who presents to the ED for the evaluation of right lower quadrant abdominal pain. Patient notes that around 7 AM, she woke up to the pain in the right lower quadrant, that felt like intense cramps. These have been present all day, she states that around 3 PM however she developed a sharp stabbing pain. Patient notes she has had pain similar to this in times past with a left hemorrhagic ovarian cyst. She denies any nausea , vomiting, diarrhea. She noticed that she did have a regular BM this morning. She has not taken any sort of [id number] pain medications like ibuprofen or Tylenol for the pain. Patient states when the pain is at its worst , it is a sharp stabbing pain that goes through to her back. Patient has not had any abdominal surgeries, so still retains her appendix and gallbladder. She 's not had a history of kidney stones. Patient states he last ate around noon, and last had any sort of drink at around 3 PM. She denies any fevers or chills , shortness of breath or chest pain, dysuria, urinary urgency or frequency, or any sort of vaginal symptoms like discharge or bleeding. She further denies any chance of being , she has an IUD. 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 (see below) Other Treatments COVERSTITCH MACHINE OPERATOR: none Right Lower Abdomen Pain Score (Numeric/FACES): 8 Right Lower Back Pain Score (Numeric/FACES): 8 - Related Data Allergies Allergy/AdvReac Type Severity Reaction Status Date / Time No Known Allergies Allergy Verified 04/02/18 07:54 Home Meds: Home Meds Levonorgestrel [Mirena] 1 insert IUTERINE ASDIRECTED 06/24/17 [History] Phentermine HCl 30 mg PO DAILY 09/08/19 [History] traMADol [Ultram] 50 mg PO Q6H PRN #15 tab 09/08/19 [Rx] Past Medical History - Past Health History Medical/Surgical History: Denies Medical/Surgical History HEENT History: Reports: Other (See Below) Other HEENT History: Seasonal allergies- multiple body piercings Cardiovascular History: Reports: None Respiratory History: Reports: None Gastrointestinal History: Reports: GERD, Other (See Below) Other Gastrointestinal History: Epigastric pain, abdominal pain Genitourinary History: Reports: None 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 (See Below) Other ROAD WORKER History: Ovarian cyst Musculoskeletal History: Reports: Fracture Other Musculoskeletal History: Stress fracture of right metatarsal bone Neurological History: Reports: None Psychiatric History: Reports: Other (See Below) Other Psychiatric History: Patient originally treated for anxiety due to not being able to sleep at night; however, antianxiety medications weren't helping and was started on the Ambien for the insomnia Endocrine/Metabolic History: Reports: None, Obesity/BMI 30+ Hematologic History: Reports: None Immunologic History: Reports: None Oncologic (Cancer) History: Reports: None Dermatologic History: Reports: None - Infectious Disease History Infectious Disease History: Reports: None - Past Surgical History Head Surgeries/Procedures: Reports: None HEENT Surgical History: Reports: Other (See Below) Other HEENT Surgeries/Procedures: [place] teeth extraction, oral surgery with 12 teeth extraction Cardiovascular Surgical History: Reports: None Respiratory Surgical History: Reports: None GI Surgical History: Reports: None Female Surgical History: Reports: None Endocrine Surgical History: Reports: None Neurological Surgical History: Reports: None Musculoskeletal Surgical History: Reports: None Oncologic Surgical History: Reports: None Dermatological Surgical History: Reports: None Social & Family History - Family History Family Medical History: Noncontributory - Tobacco Use Smoking Status *Q: Current Every Day Smoker Years of Tobacco use: 4 Packs/Tins Daily: 1 - Caffeine Use Caffeine Use: Reports: Coffee, Soda Other Caffeine Use: 1/week - Recreational Drug Use Recreational Drug Use: No ED ROS GENERAL - Review of Systems Review Of Systems: See Below Constitutional: Denies: Fever, Chills HEENT: Reports: No Symptoms Respiratory: Denies: Shortness of Breath Cardiovascular: Denies: Chest Pain GI/Abdominal: Reports: Abdominal Pain (RLQ). Denies: Constipation, Diarrhea, Nausea, Vomiting : Denies: Discharge, Dysuria, Flank Pain, Frequency, Urgency Musculoskeletal: Reports: Back Pain (Right lower, radiation from abdomen) Skin: Reports: No Symptoms Neurological: Reports: No Symptoms Psychiatric: Reports: No Symptoms Hematologic/Lymphatic: Reports: No Symptoms ED EXAM, GI/ABD - Physical Exam Exam: See Below Exam Limited By: No Limitations General Appearance: Alert, WD/WN, No Apparent Distress Eyes: Bilateral: Normal Appearance Throat/Mouth: Normal Inspection, Normal Lips, Normal Teeth, Normal Gums, Normal Oropharynx, Normal Voice, No Airway Compromise Head: Atraumatic, Normocephalic Neck: Normal Inspection Respiratory/Chest: No Respiratory Distress, Lungs Clear, Normal Breath Sounds, No Accessory Muscle Use, Chest Non-Tender Cardiovascular: Normal Peripheral Pulses, Regular Rate, Rhythm, No Murmur GI/Abdominal Exam: Normal Bowel Sounds, Soft, No Distention, No Mass, Tender ( Pt states that the pain feels better with palpation of RLQ) (Female) Exam: Deferred Extremities: Normal Inspection, Normal Capillary Refill Neurological: Alert, Oriented, Normal Cognition, No Motor/Sensory Deficits Psychiatric: Normal Affect, Normal Mood Skin Exam: Warm, Dry, Intact, Normal Color, No Rash Course - Vital Signs Last Recorded V/S: Last Vital Signs Temp 95.9 F 09/08/19 16:18 Pulse 50 L 09/08/19 16:18 Resp 20 09/08/19 16:18 BP 162/74 H 09/08/19 16:18 Pulse Ox 96 09/08/19 16:18 - Re-Assessments/Exams Free Text/Narrative Re-Assessment/Exam: 09/08/19 17:30 Patient presents to the ED for the evaluation of right lower quadrant abdominal pain. Due to her history of ovarian cysts, and the progression of her pain, I do believe that this is an ovarian cyst in nature, patient did not request any sort of laboratory evaluation or radiographic evaluation, she was reassured by the fact that it might be an ovarian cyst. I did educate her on worrisome signs and symptoms and when to return, she acknowledged understanding. Departure - Departure Time of Disposition: 17:13 Disposition: Home, Self-Care 01 Condition: Fair Clinical Impression: Right lower quadrant abdominal pain, History of ovarian cyst - Discharge Information *PRESCRIPTION DRUG MONITORING PROGRAM REVIEWED*: Yes *COPY OF PRESCRIPTION DRUG MONITORING REPORT IN PATIENT NOLAN: No Prescriptions: traMADol [Ultram] 50 mg PO Q6H PRN #15 tab PRN Reason: Pain Instructions: Ovarian Cyst, [id number] Referrals: Damaris Trent NP [Primary Care Provider] - Forms: ED Department Discharge Additional Instructions: You were evaluated in the ER today regarding your right lower abdominal pain, due to your history and exam, this is most likely due to an ovarian cyst. No laboratory evaluation or radiographic imaging was done at today's visit. Recommend that you take 600 mg ibuprofen or 500 mg Tylenol every 6 hours as needed for further pain relief, you were provided with a prescription for tramadol, 1 tab every 6 hours as needed for pain relief not relieved by Tylenol or ibuprofen alone. Please do not exceed 3200 mg ibuprofen or 4000 mg Tylenol in a 24-hour time span. Tramadol prescription was electronically prescribed to the [facility] located in [facility]. Tramadol can be somewhat constipating, recommend you take MiraLAX, or a stool softener on a daily basis while taking this medication, to help keep the bowels regular. Please watch out for worrisome signs and symptoms, if you should develop a fever or chills, worsening abdominal pain that is not relieved by ibuprofen, these to be cause for concern to return immediately to the ER for re-evaluation.
== END 2019-09-08 17:28 | disposition home or self-care (01) ==
LOC: JD.ED 15:59
DX: R10.31 Right lower quadrant pain (principal); E66.9 Obesity, unspecified; F17.210 Nicotine dependence, cigarettes, uncomplicated; Z85.43 Personal history of malignant neoplasm of ovary; Z68.38 Body mass index [BMI] 38.0-38.9, adult
CPT/HCPCS: 99283

== ENCOUNTER 2024-10-21 14:13 | Emergency (ER) | payer BC ==
[2024-10-21 14:28] VITALS: BP 144/87; PULSE 58
[2024-10-21] MEDS: Diphtheria,Pertussis(Acell),Tetanus Vaccine 0.5 ML Syringe IM ONE (14:58)
== END 2024-10-21 15:20 | disposition home or self-care (01) ==
LOC: JD.ED 14:13
DX: S60.411A Abrasion of left index finger, initial encounter (principal); E66.9 Obesity, unspecified; Z68.29 Body mass index [BMI] 29.0-29.9, adult; W23.1XXA Caught, crushed, jammed, or pinched between stationary objects, initial encounter; Y99.0 Civilian activity done for income or pay; Z23 Encounter for immunization
CPT/HCPCS: 73140-26-F1; 73140-F1; 90471; 90715; 99283-25